=== PATIENT | male | born 1970 | race Caucasian/White ===

== ENCOUNTER 2019-04-14 16:24 | Outpatient (CLI) | payer BC ==
--- NOTE | 2019-04-14 16:35 | RAD ---
XR Shoulder Lt 3 View STANDARD History: Pain in left shoulder. Torn rotator cuff. Comparison: None Findings: No acute fracture or malalignment. Mild degenerative disease acromioclavicular joint. Ribs are intact. Impression: No acute osseous abnormality.
== END 2019-04-14 16:25 | disposition home or self-care (01) ==
LOC: BICRAD 16:24
PROVIDERS: ATTEND Family Medicine
DX: M25.512 Pain in left shoulder (principal)

== ENCOUNTER 2024-09-01 12:24 | Emergency (ER) | payer BC ==
[~2024-09-01 12:24] MED LIST: Iopamidol-370 76% 500 ML MDV (1 ML CHARGE) ONE
[2024-09-01 14:03] LABS: #Basophils Less than 0.03 10x3/uL (0.0-0.2); #Eosinophils Less than 0.03 10x3/uL (0.0-0.7); %Basophils 0.2 % (0.0-1.0); %Eosinophils 0.2 % (0.0-10.0); %Lymphocytes 11.7 % (21.0-51.0); %Monocytes 8.5 % (0.0-10.0); %Neutrophils 78.2 % (42.0-75.0); Hematocrit 20.5 % (42.0-52.0); Hemoglobin 5.5 g/dL (14.0-18.0); Mean Corpuscular HGB CONC 26.8 g/dL (32.0-36.0); Mean Corpuscular Hemoglobin 18.9 pg (27.0-31.0); Mean Corpuscular Volume 70.4 fL (78.0-98.0); Mean Platelet Volume 7.9 fL (7.4-10.4); Platelet Count 388 10x3/uL (130-400); RBC Distribution Width 29.5 % (11.5-14.5); Red Blood Cell (RBC) Count 2.91 mill/uL (4.70-6.10)
[2024-09-01 14:07] LABS: ALT (SGPT) 7 U/L (Less than 45); AST (SGOT) 14 U/L (11-34); Albumin 1.4 g/dL (3.1-4.5); Alkaline Phosphatase 191 U/L (40-110); Anion Gap 17 mmol/L (10-20); BUN (Urea Nitrogen) 19 mg/dL (8.4-25.7); Bilirubin, Total 0.4 mg/dL (0.3-1.2); Calc. Creatinine Clearance 0 mL/min (70-130); Calcium 8.3 mg/dL (7.8-10.44); Carbon Dioxide 19 mmol/L (22-29); Chloride 99 mmol/L (98-107); Estimated GFR 74; Globulin 4.4 g/dL (2.4-3.5); Glucose 65 mg/dL (70-105); Protein, Total 5.8 g/dL (6.0-8.3); Sodium 132 mmol/L (136-145)
[2024-09-01 14:13] LABS: Troponin I Less than 0.010 ng/mL (< 0.028)
[2024-09-01 14:30] LABS: Burr Cells SLIGHT = 2-5 cells HPF (0-1); Hypochromia SLIGHT = 6-15 cells HPF (0-5); Microcytosis MODERATE=15-30 cells HPF (0-5); Platelet Adequacy Comment Platelets Normal; Polychromasia MODERATE = 3-4 cells HPF (0-2); Schistocytes SLIGHT = 2-5 cells HPF (0-1); Spherocytes SLIGHT = 1-5 cells HPF (None Seen)
[2024-09-01] MEDS ORDERED: Potassium Chloride 20 MEQ TAB ONE (15:02)
[2024-09-01 15:18] LABS: INR-International Normal Ratio 1.4
[2024-09-01] MEDS ORDERED: Midodrine HCl 5 MG TAB PO SCH (16:45)
[2024-09-01 23:32] LABS: #Basophils Less than 0.03 10x3/uL (0.0-0.2); #Eosinophils Less than 0.03 10x3/uL (0.0-0.7); %Basophils 0.1 % (0.0-1.0); %Eosinophils 0.3 % (0.0-10.0); %Lymphocytes 12.4 % (21.0-51.0); %Monocytes 10.1 % (0.0-10.0); %Neutrophils 75.8 % (42.0-75.0); Hematocrit 33.7 % (42.0-52.0); Hemoglobin 10.1 g/dL (14.0-18.0); Mean Corpuscular Hemoglobin 22.4 pg (27.0-31.0); Mean Corpuscular Volume 74.9 fL (78.0-98.0); Mean Platelet Volume 7.8 fL (7.4-10.4); Platelet Count 412 10x3/uL (130-400); RBC Distribution Width 26.5 % (11.5-14.5)
== END 2024-09-02 00:36 | disposition short-term general hospital (02) ==
LOC: ERS 12:24
DX: I82.220 Acute embolism and thrombosis of inferior vena cava (principal); E87.6 Hypokalemia; D64.9 Anemia, unspecified; R53.1 Weakness; I25.10 Atherosclerotic heart disease of native coronary artery without angina pectoris; I25.2 Old myocardial infarction; I50.9 Heart failure, unspecified; Z87.891 Personal history of nicotine dependence
CPT/HCPCS: 36415; 36430; 74177; 80053; 84484; 85025; 85610; 86850; 86900; 86901; 87428; 93005; 99285; P9016; Q9967

== ENCOUNTER 2024-09-08 23:56 | Inpatient (IN) | payer BC ==
[2024-09-09 04:18] LABS: Hematocrit 28.1 % (42.0-52.0); Hemoglobin 8.6 g/dL (14.0-18.0); Mean Corpuscular HGB CONC 30.6 g/dL (32.0-36.0); Mean Corpuscular Hemoglobin 23.1 pg (27.0-31.0); Mean Corpuscular Volume 75.3 fL (78.0-98.0); Mean Platelet Volume 8.1 fL (7.4-10.4); Platelet Count 287 10x3/uL (130-400); RBC Distribution Width 27.9 % (11.5-14.5); Red Blood Cell (RBC) Count 3.73 mill/uL (4.70-6.10)
[2024-09-09 04:29] LABS: Troponin I Less than 0.010 ng/mL (< 0.028)
[2024-09-09 04:31] LABS: ALT (SGPT) Less than 7 U/L (Less than 45); AST (SGOT) 15 U/L (11-34); Alkaline Phosphatase 183 U/L (40-110); Anion Gap 14 mmol/L (10-20); BUN (Urea Nitrogen) 9 mg/dL (8.4-25.7); Bilirubin, Total 0.3 mg/dL (0.3-1.2); Calc. Creatinine Clearance 0 mL/min (70-130); Calcium 4.9 mg/dL (7.8-10.44); Carbon Dioxide 14 mmol/L (22-29); Chloride 108 mmol/L (98-107); Estimated GFR 101; Globulin 2.8 g/dL (2.4-3.5); Glucose 78 mg/dL (70-105); Potassium 3.9 mmol/L (3.5-5.1); Protein, Total 3.8 g/dL (6.0-8.3); Sodium 132 mmol/L (136-145)
[2024-09-09 04:42] LABS: Anisocytosis SLIGHT = 6-15 cells HPF (0-5); Band 2 % (5-11); Elliptocytes SLIGHT = 2-5 cells HPF (0-1); Eosinophils 1 % (0-10); Hypochromia SLIGHT = 6-15 cells HPF (0-5); Lymphocytes 8 % (21-51); Microcytosis SLIGHT = 6-15 cells HPF (0-5); Monocytes 2 % (0-10); Neutrophil 86 % (42-75); Platelet Adequacy Comment Platelets Normal; Poikilocytosis SLIGHT = 6-15 cells HPF (0-5); Polychromasia SLIGHT = 2-3 cells HPF (0-2); Target Cells SLIGHT = 2-5 cells HPF (0-1)
[2024-09-09] MEDS ORDERED: CALCIUM GLUC 1 GM/NS 50 ML IV Bag ONE ×4 (05:44→09:59)
[2024-09-09 07:05] LABS: Lactic Acid 1.65 mmol/L (0.50-2.20)
[2024-09-09] MEDS ORDERED: Acetaminophen 325 MG TAB PO PRN (07:15)
[2024-09-09] MEDS ORDERED: Ondansetron ODT 4 MG TAB SL PRN (07:15)
[2024-09-09] MEDS ORDERED: Ondansetron PF 4 MG/2 ML Vial IVP PRN (07:15)
[2024-09-09] MEDS: Midodrine HCl 5 MG TAB PO SCH ×3 (08:48→14:22)
[2024-09-09] MEDS: CALCIUM GLUC 1 GM/NS 50 ML 1 GM in Premix 1 BAG IVPB SCH (09:05)
[2024-09-09] MEDS ORDERED: Dextrose 5% in Water 1,000 ML IV PRN (09:41)
[2024-09-09] MEDS ORDERED: Glucagon 1 MG/ML KIT IM PRN (09:41)
[2024-09-09] MEDS ORDERED: Magnevist 469MG/ML 20 ML VIAL ONE (10:27)
[2024-09-09] MEDS ORDERED: levETIRAcetam 500 MG TAB ONE (10:54)
[2024-09-09] MEDS: levETIRAcetam 500 MG TAB PO SCH ×2 (11:00→22:58)
[2024-09-09] MEDS ORDERED: Dextrose 10% in Water 250 ML ONE ×2 (11:36→15:57)
[2024-09-09] MEDS ORDERED: diphenhydrAMINE 50 MG/ML VIAL ONE (14:10)
[2024-09-09] MEDS: diphenhydrAMINE 50 MG/ML VIAL IVP SCH (14:15)
[2024-09-09] MEDS ORDERED: Enoxaparin 40 MG (0.4 mL) SYRINGE ONE (16:23)
[2024-09-09] MEDS: Dextrose 5 % And 0.9 % NaCl 1,000 ML IV SCH (16:33)
[2024-09-09 16:41] VITALS: BMI 19.9
[2024-09-09] MEDS: Enoxaparin 40 MG (0.4 mL) SYRINGE SC SCH (16:44)
[2024-09-09 16:51] LABS: Calcium 6.1 mg/dL (7.8-10.44)
[2024-09-09] MEDS: Enoxaparin 60 MG (0.6 mL) SYRINGE SC SCH (17:00)
[2024-09-09] MEDS ORDERED: Enoxaparin 60 MG (0.6 mL) SYRINGE ONE (17:52)
[2024-09-09] MEDS: Atorvastatin Calcium 40 MG TAB PO SCH (22:58)
[2024-09-09] MEDS: Mirtazapine 15 MG TAB PO SCH (22:58)
[2024-09-10] MEDS: diphenhydrAMINE 25 MG CAP PO SCH (01:47)
[2024-09-10] MEDS: Enoxaparin 60 MG (0.6 mL) SYRINGE SC SCH ×2 (04:43→15:05)
[2024-09-10 05:04] LABS: #Basophils Less than 0.03 10x3/uL (0.0-0.2); %Basophils 0.1 % (0.0-1.0); %Eosinophils 0.5 % (0.0-10.0); %Lymphocytes 13.8 % (21.0-51.0); %Monocytes 7.8 % (0.0-10.0); %Neutrophils 75.7 % (42.0-75.0); Mean Corpuscular HGB CONC 30.8 g/dL (32.0-36.0); Mean Corpuscular Volume 74.7 fL (78.0-98.0); Mean Platelet Volume 8.2 fL (7.4-10.4); Platelet Count 315 10x3/uL (130-400); RBC Distribution Width 28.4 % (11.5-14.5); Red Blood Cell (RBC) Count 3.48 mill/uL (4.70-6.10)
[2024-09-10 05:16] LABS: Phosphorus 2.4 mg/dL (2.5-4.5)
[2024-09-10 05:18] LABS: Anion Gap 12 mmol/L (10-20); BUN (Urea Nitrogen) 9 mg/dL (8.4-25.7); Calc. Creatinine Clearance 81 mL/min (70-130); Calcium 5.8 mg/dL (7.8-10.44); Carbon Dioxide 14 mmol/L (22-29); Chloride 110 mmol/L (98-107); Estimated GFR 104; Glucose 57 mg/dL (70-105); Magnesium 1.3 mg/dL (1.6-2.6); Potassium 3.7 mmol/L (3.5-5.1); Sodium 132 mmol/L (136-145)
[2024-09-10] MEDS: Dextrose 50% Abboject 50 ML SYRINGE SLOW IVP PRN (06:07)
[2024-09-10] MEDS ORDERED: Electrolyte Replacement Protocol 1 EACH FS SCH (07:45)
[2024-09-10] MEDS ORDERED: Electrolyte Replacement Protocol FS PRN (07:45)
[2024-09-10] MEDS ORDERED: Magnesium Sulfate 4 GM in Sodium Chloride 0.9% 250 ML 250 ML IVPB SCH (07:45)
[2024-09-10 09:48] VITALS: BMI 19.9
[2024-09-10] MEDS: Pantoprazole 40 MG DR.TAB PO SCH (10:10)
[2024-09-10] MEDS: PHOS-NAK 1 PKT PACK PO SCH (10:10)
[2024-09-10] MEDS: Aspirin 81 mg Enteric Coated Tablet PO SCH (10:15)
[2024-09-10] MEDS: diphenhydrAMINE 25 MG CAP PO PRN (11:36)
[2024-09-10] MEDS: Magnesium Sulfate In Water 4 GM in Premix 1 BAG IVPB SCH (11:42)
[2024-09-10] MEDS: Calcium Gluc 4.6 MEQ/10 ML (100 MG/ML) SLOW IVP SCH (11:49)
[2024-09-10] MEDS ORDERED: CEFAZOLIN 2 GM in Sodium Chloride 0.9% 100 ML IVPB SCH (15:30)
[2024-09-10] MEDS: Sodium Bicarbonate Tab 325 MG TAB PO SCH (20:40)
[2024-09-11] MEDS ORDERED: Lidocaine 2% PF 5 ML VIAL ONE (06:56)
[2024-09-11] MEDS ORDERED: EPINEPHrine 1 MG/ML VIAL ONE (06:56)
[2024-09-11] MEDS ORDERED: Bupivacaine PF 0.5% 30 ML VIAL ONE (06:56)
[2024-09-11] MEDS ORDERED: CEFAZOLIN 2 GM VIAL ONE (07:24)
[2024-09-11] MEDS ORDERED: Midazolam HCl 2 mg/2 ml Vial ONE (07:39)
[2024-09-11] MEDS ORDERED: fentaNYL 50 mcg/mL 1 mL Vial ONE (07:48)
[2024-09-11] MEDS: Acetaminophen 500 MG TAB PO SCH ×2 (09:31→14:30)
[2024-09-11] MEDS: traMADol HCl 50 MG TAB PO SCH (09:32)
[2024-09-11] MEDS ORDERED: traMADol HCl 50 MG TAB PO PRN (13:00)
[2024-09-12 00:24] LABS: #Basophils Less than 0.03 10x3/uL (0.0-0.2); %Basophils 0.2 % (0.0-1.0); %Eosinophils 0.6 % (0.0-10.0); %Lymphocytes 18.6 % (21.0-51.0); %Monocytes 6.2 % (0.0-10.0); %Neutrophils 73.2 % (42.0-75.0); Hematocrit 28.2 % (42.0-52.0); Hemoglobin 8.3 g/dL (14.0-18.0); Mean Corpuscular HGB CONC 29.4 g/dL (32.0-36.0); Mean Corpuscular Hemoglobin 22.4 pg (27.0-31.0); Mean Platelet Volume 8.2 fL (7.4-10.4); Platelet Count 247 10x3/uL (130-400); RBC Distribution Width 29.5 % (11.5-14.5); Red Blood Cell (RBC) Count 3.71 mill/uL (4.70-6.10)
[2024-09-12 00:45] LABS: Anisocytosis MODERATE=16-30 cells HPF (0-5); Hypochromia SLIGHT = 6-15 cells HPF (0-5); Microcytosis SLIGHT = 6-15 cells HPF (0-5); Platelet Adequacy Comment Platelets Normal; Polychromasia SLIGHT = 2-3 cells HPF (0-2); Tear Drops SLIGHT = 2-5 cells HPF (0-1)
[2024-09-12 01:00] LABS: Anion Gap 15 mmol/L (10-20); BUN (Urea Nitrogen) 9 mg/dL (8.4-25.7); Calc. Creatinine Clearance 76 mL/min (70-130); Calcium 5.8 mg/dL (7.8-10.44); Carbon Dioxide 13 mmol/L (22-29); Chloride 114 mmol/L (98-107); Estimated GFR 101; Glucose 73 mg/dL (70-105); Phosphorus 3.2 mg/dL (2.5-4.5); Sodium 138 mmol/L (136-145)
[2024-09-12 03:55] LABS: #Basophils Less than 0.03 10x3/uL (0.0-0.2); #Eosinophils Less than 0.03 10x3/uL (0.0-0.7); %Basophils 0.1 % (0.0-1.0); %Eosinophils 0.3 % (0.0-10.0); %Lymphocytes 11.3 % (21.0-51.0); %Monocytes 5.6 % (0.0-10.0); %Neutrophils 81.7 % (42.0-75.0); Hemoglobin 8.3 g/dL (14.0-18.0); Mean Corpuscular HGB CONC 28.6 g/dL (32.0-36.0); Mean Corpuscular Hemoglobin 22.1 pg (27.0-31.0); Mean Corpuscular Volume 77.3 fL (78.0-98.0); Mean Platelet Volume 7.9 fL (7.4-10.4); Platelet Count 202 10x3/uL (130-400); RBC Distribution Width 29.7 % (11.5-14.5); Red Blood Cell (RBC) Count 3.75 mill/uL (4.70-6.10)
[2024-09-12 04:37] LABS: Anion Gap 14 mmol/L (10-20); BUN (Urea Nitrogen) 9 mg/dL (8.4-25.7); Calc. Creatinine Clearance 81 mL/min (70-130); Calcium 5.7 mg/dL (7.8-10.44); Carbon Dioxide 13 mmol/L (22-29); Chloride 114 mmol/L (98-107); Estimated GFR 103; Glucose 79 mg/dL (70-105); Magnesium 1.9 mg/dL (1.6-2.6); Potassium 3.8 mmol/L (3.5-5.1); Sodium 137 mmol/L (136-145)
[2024-09-12 04:58] LABS: Anisocytosis SLIGHT = 6-15 cells HPF (0-5); Burr Cells MODERATE= 6-15 cells HPF (0-1); Hypochromia SLIGHT = 6-15 cells HPF (0-5); Microcytosis SLIGHT = 6-15 cells HPF (0-5); Platelet Adequacy Comment Platelets Normal; Poikilocytosis MODERATE=16-30 cells HPF (0-5); Polychromasia SLIGHT = 2-3 cells HPF (0-2)
[2024-09-12] MEDS: Sodium Bicarbonate Tab 325 MG TAB PO SCH (10:46)
[2024-09-12] MEDS: Calcium Gluc 4.6 MEQ/10 ML (100 MG/ML) SLOW IVP SCH (10:53)
[2024-09-12] MEDS: Potassium Chloride 20 MEQ in Lactated Ringer's 1,000 ML IV SCH (10:53)
[2024-09-12] MEDS: Metoclopramide HCl 10 MG (2 mL) VIAL IVP SCH (12:03)
[2024-09-12] MEDS ORDERED: D5 0.9% NS w/ 20 mEq KCl 1,000 ML IV SCH (13:00)
[2024-09-12] MEDS: FLU (Fluarix Triv) TS24-25(6MOS UP)/PF 45 MCG/0.5 ML Syringe IM ONE (14:01)
[2024-09-12] MEDS: Sodium Bicarbonate 75 MEQ in Dextrose 5% in Water 1,000 ML IV SCH (16:38)
[2024-09-12] MEDS: Magnesium 2 GM/50 ML(in water) 2 GM in Premix 1 BAG IVPB SCH (16:38)
[2024-09-12] MEDS: Ondansetron PF 4 MG/2 ML Vial IVP PRN (21:32)
[2024-09-12] MEDS: Lorazepam 1 MG TAB PO PRN (21:34)
[2024-09-13 04:52] LABS: #Basophils Less than 0.03 10x3/uL (0.0-0.2); #Eosinophils Less than 0.03 10x3/uL (0.0-0.7); %Lymphocytes 7.7 % (21.0-51.0); %Monocytes 4.2 % (0.0-10.0); %Neutrophils 86.5 % (42.0-75.0); Hematocrit 25.1 % (42.0-52.0); Hemoglobin 7.5 g/dL (14.0-18.0); Mean Corpuscular HGB CONC 29.9 g/dL (32.0-36.0); Mean Corpuscular Hemoglobin 22.3 pg (27.0-31.0); Mean Corpuscular Volume 74.5 fL (78.0-98.0); Mean Platelet Volume 8.2 fL (7.4-10.4); Platelet Count 197 10x3/uL (130-400); RBC Distribution Width 30.2 % (11.5-14.5); Red Blood Cell (RBC) Count 3.37 mill/uL (4.70-6.10)
[2024-09-13 05:00] LABS: Anion Gap 15 mmol/L (10-20); BUN (Urea Nitrogen) 11 mg/dL (8.4-25.7); Calc. Creatinine Clearance 67 mL/min (70-130); Calcium 5.4 mg/dL (7.8-10.44); Carbon Dioxide 15 mmol/L (22-29); Chloride 107 mmol/L (98-107); Estimated GFR 88; Glucose 70 mg/dL (70-105); Potassium 4.4 mmol/L (3.5-5.1); Sodium 133 mmol/L (136-145)
[2024-09-13] MEDS: Albumin 25% 25 GM (100 mL) BOT IVPB SCH ×2 (12:36)
[2024-09-13] MEDS: Cefepime 1 GM in Sodium Chloride 0.9% 100 ML IVPB SCH (12:36)
[2024-09-13] MEDS: NOREPINEPHRINE 8 MG/250 ML-D5W 250 ML IVPB SCH (13:01)
[2024-09-13] MEDS: Dexmedetomidine In 0.9 % NaCl 100 ML IVPB SCH (14:39)
[2024-09-13] MEDS: Furosemide 40 MG (4 mL) VIAL SLOW IVP SCH (14:39)
[2024-09-13 15:02] LABS: #Basophils Less than 0.03 10x3/uL (0.0-0.2); #Eosinophils Less than 0.03 10x3/uL (0.0-0.7); %Basophils 0.1 % (0.0-1.0); %Lymphocytes 7.9 % (21.0-51.0); %Monocytes 2.2 % (0.0-10.0); %Neutrophils 88.6 % (42.0-75.0); Hematocrit 26.1 % (42.0-52.0); Hemoglobin 7.6 g/dL (14.0-18.0); Mean Corpuscular HGB CONC 29.1 g/dL (32.0-36.0); Mean Corpuscular Volume 75.7 fL (78.0-98.0); Mean Platelet Volume 8.7 fL (7.4-10.4); Platelet Count 263 10x3/uL (130-400); RBC Distribution Width 30.5 % (11.5-14.5); Red Blood Cell (RBC) Count 3.45 mill/uL (4.70-6.10)
[2024-09-13 15:20] LABS: Burr Cells MODERATE= 6-15 cells HPF (0-1); Hypochromia SLIGHT = 6-15 cells HPF (0-5); Platelet Adequacy Comment Platelets Normal; Poikilocytosis MODERATE=16-30 cells HPF (0-5); Polychromasia MODERATE = 3-4 cells HPF (0-2)
[2024-09-13 15:26] LABS: ALT (SGPT) Less than 7 U/L (Less than 45); AST (SGOT) 30 U/L (11-34); Albumin 1.8 g/dL (3.1-4.5); Alkaline Phosphatase 439 U/L (40-110); Anion Gap 20 mmol/L (10-20); BUN (Urea Nitrogen) 11 mg/dL (8.4-25.7); Bilirubin, Total 0.7 mg/dL (0.3-1.2); Calc. Creatinine Clearance 64 mL/min (70-130); Calcium 5.6 mg/dL (7.8-10.44); Carbon Dioxide 11 mmol/L (22-29); Chloride 106 mmol/L (98-107); Estimated GFR 83; Glucose 86 mg/dL (70-105); Phosphorus 4.6 mg/dL (2.5-4.5); Potassium 4.3 mmol/L (3.5-5.1); Protein, Total 4.8 g/dL (6.0-8.3); Sodium 133 mmol/L (136-145)
[2024-09-13] MEDS: CALCIUM GLUC 1 GM/NS 50 ML 1 GM in Premix 1 BAG IVPB SCH (16:25)
[2024-09-13] MEDS: Furosemide 100 MG (10 mL) VIAL SLOW IVP SCH (16:31)
[2024-09-13] MEDS: EPINEPHrine 1 MG/10 ML Abboject SYRINGE ONE (20:35)
[2024-09-13] MEDS: Etomidate 40 MG (20 mL) VIAL IVP SCH (20:40)
[2024-09-13] MEDS: Rocuronium Bromide 10 MG/ML (10ML VIAL) IVP SCH (20:40)
[2024-09-13] MEDS ORDERED: Lorazepam 2 MG/ML VIAL SLOW IVP PRN (21:00)
[2024-09-13] MEDS ORDERED: Fentanyl BOLUS 250 ML IVPB PRN (21:00)
[2024-09-13] MEDS: Vancomycin 1.5 GRAM/300 ML BAG 1.5 GM in Premix 1 BAG IVPB SCH (21:00)
[2024-09-13] MEDS ORDERED: Vasopressin In 0.9 % NaCl 40 UNIT in Premix 1 BAG IV SCH (21:00)
[2024-09-13] MEDS ORDERED: Vasopressin 20 UNITS in Sodium Chloride 0.9% 50 ML IV SCH (21:00)
[2024-09-13] MEDS ORDERED: Propofol BOLUS 1,000 MG/100 ML VIAL IV PRN (21:00)
[2024-09-13] MEDS ORDERED: Morphine 2 MG/ML VIAL SLOW IVP PRN (21:00)
[2024-09-13] MEDS ORDERED: DISCONTINUE PREVIOUS NARCOTIC PAIN MEDICATIONS AND BENZODIAZEPINES FS SCH (21:00)
[2024-09-13] MEDS ORDERED: Propofol 1,000 MG/100 ML VIAL IV PRN (21:00)
[2024-09-13 22:26] LABS: Calcium, Ionized (arterial) 0.82 mmol/L (1.12-1.30); Carboxyhemoglobin (COHb) 0.7 gm% (0.0-3.0); Hematocrit-ABG 23 % (42.0-52.0); Hemoglobin (Hb) 7.8 g/dL (14.0-18.0); O2 Tension (PaO2), arterial 80.8 mmHg (80.0-100.0); Potassium - ABG Lab 3.83 mmol/L (3.70-5.30); pH, Arterial 7.286 (7.35-7.45)
[2024-09-13 22:27] LABS: Actual Bicarbonate (HCO3a) 13.5 mEq/L (22-28); Puncture Site Arterial Line
[2024-09-13] MEDS: Cefepime 2 GM in Sodium Chloride 0.9% 100 ML IVPB SCH (22:41)
[2024-09-13] MEDS: Ventilator Sedation Protocol 1 EACH FS ONE (22:43)
[2024-09-13] MEDS: Sodium Bicarb 50 MEQ/50 ML Abboject 8.4% SYRINGE IVP SCH (22:45)
[2024-09-13] MEDS: Sodium Bicarb 50 MEQ/50 ML Abboject 8.4% SYRINGE ONE (23:23)
[2024-09-14 04:10] LABS: #Basophils Less than 0.03 10x3/uL (0.0-0.2); #Eosinophils Less than 0.03 10x3/uL (0.0-0.7); %Monocytes 1.8 % (0.0-10.0); %Neutrophils 86.5 % (42.0-75.0); Hematocrit 24.1 % (42.0-52.0); Hemoglobin 7.1 g/dL (14.0-18.0); Mean Corpuscular HGB CONC 29.5 g/dL (32.0-36.0); Mean Corpuscular Hemoglobin 21.8 pg (27.0-31.0); Mean Corpuscular Volume 73.9 fL (78.0-98.0); Mean Platelet Volume 8.2 fL (7.4-10.4); Platelet Count 181 10x3/uL (130-400); RBC Distribution Width 30.2 % (11.5-14.5); Red Blood Cell (RBC) Count 3.26 mill/uL (4.70-6.10)
[2024-09-14 04:34] LABS: Phosphorus 5.2 mg/dL (2.5-4.5); Vancomycin, Random Less than 1.4 ug/mL (See Comment)
[2024-09-14 04:42] LABS: Anisocytosis MODERATE=16-30 cells HPF (0-5); Burr Cells MODERATE= 6-15 cells HPF (0-1); Hypochromia SLIGHT = 6-15 cells HPF (0-5); Microcytosis SLIGHT = 6-15 cells HPF (0-5); Platelet Adequacy Comment Platelets Normal; Poikilocytosis MODERATE=16-30 cells HPF (0-5); Polychromasia MODERATE = 3-4 cells HPF (0-2)
[2024-09-14 04:58] LABS: ALT (SGPT) Less than 7 U/L (Less than 45); AST (SGOT) 57 U/L (11-34); Albumin 1.9 g/dL (3.1-4.5); Alkaline Phosphatase 728 U/L (40-110); Anion Gap 19 mmol/L (10-20); BUN (Urea Nitrogen) 12 mg/dL (8.4-25.7); Bilirubin, Total 1.4 mg/dL (0.3-1.2); Calc. Creatinine Clearance 60 mL/min (70-130); Calcium 5.5 mg/dL (7.8-10.44); Carbon Dioxide 15 mmol/L (22-29); Chloride 106 mmol/L (98-107); Estimated GFR 76; Globulin 2.4 g/dL (2.4-3.5); Glucose 61 mg/dL (70-105); Lactic Acid 4.38 mmol/L (0.50-2.20); Magnesium 1.7 mg/dL (1.6-2.6); Potassium 3.6 mmol/L (3.5-5.1); Protein, Total 4.3 g/dL (6.0-8.3); Sodium 136 mmol/L (136-145)
[2024-09-14 07:40] VITALS: BP 118/65
[2024-09-14] MEDS: Magnesium 2 GM/50 ML(in water) 2 GM in Premix 1 BAG IVPB SCH (08:10)
[2024-09-14] MEDS ORDERED: Vancomycin HCl 750 MG in Sodium Chloride 0.9% 250 ML 250 ML IVPB SCH (09:00)
[2024-09-14 10:22] LABS: Vancomycin, Random Less than 1.4 ug/mL (See Comment)
[2024-09-14] MEDS: Vancomycin 1 GM in Premix 1 BAG IVPB SCH (11:06)
[2024-09-14] MEDS ORDERED: diphenhydrAMINE 25 MG CAP PER TUBE PRN (11:41)
[2024-09-14] MEDS: Pantoprazole 40 MG VIAL IVP SCH (12:28)
[2024-09-14] MEDS ORDERED: Vancomycin HCl 500 MG in Sodium Chloride 0.9% 100 ML IVPB SCH (12:30)
[2024-09-14] MEDS: Fentanyl CADD 100 ML IV SCH (12:58)
[2024-09-14] MEDS ORDERED: Acetaminophen 500 MG TAB PER TUBE SCH (13:00)
[2024-09-14] MEDS: levETIRAcetam 500 MG (5 mL) VIAL SLOW IVP SCH (13:02)
[2024-09-14 13:23] VITALS: TEMP 97.7
[2024-09-14] MEDS: Glycopyrrolate 0.4 MG/ 2 ML VIAL SLOW IVP PRN (13:41)
[2024-09-14] MEDS: Lorazepam 2 MG/ML VIAL SLOW IVP PRN (13:41)
[2024-09-14] MEDS: Morphine 4 MG/ML VIAL SLOW IVP PRN (13:41)
[2024-09-14] MEDS ORDERED: Albumin 25% 25 GM (100 mL) BOT IVPB SCH (18:00)
[2024-09-14] MEDS ORDERED: Mirtazapine 15 MG TAB PER TUBE SCH (21:00)
[2024-09-14] MEDS ORDERED: Sodium Bicarbonate Tab 325 MG TAB PER TUBE SCH (21:00)
[2024-09-14] MEDS ORDERED: Atorvastatin Calcium 40 MG TAB PER TUBE SCH (21:00)
[2024-09-14] MEDS ORDERED: levETIRAcetam 500 MG (5 mL) VIAL SLOW IVP SCH (21:00)
[2024-09-15] MEDS ORDERED: Aspirin Chewable 81 MG TAB PER TUBE SCH (09:00)
== END 2024-09-14 14:05 | disposition expired | DRG 314 ==
LOC: ERS 23:56 → ERHOLD 09-09 06:54 → PCU 09-09 20:42 → IMCU/EMU 09-12 13:51 → CCU 09-13 12:46
PROVIDERS: ADMIT Student in an Organized Health Care Education/Training Program; ATTEND Family Medicine
DX: I95.9 Hypotension, unspecified (principal); E43 Unspecified severe protein-calorie malnutrition; J18.9 Pneumonia, unspecified organism; J96.01 Acute respiratory failure with hypoxia; C64.9 Malignant neoplasm of unspecified kidney, except renal pelvis; E87.1 Hypo-osmolality and hyponatremia; E87.20 Acidosis, unspecified; E83.51 Hypocalcemia; I25.10 Atherosclerotic heart disease of native coronary artery without angina pectoris; I25.2 Old myocardial infarction; I50.9 Heart failure, unspecified; Z98.890 Other specified postprocedural states; Z95.1 Presence of aortocoronary bypass graft; Z87.891 Personal history of nicotine dependence; D50.9 Iron deficiency anemia, unspecified; E83.42 Hypomagnesemia; E87.6 Hypokalemia; Z66 Do not resuscitate
CPT/HCPCS: 36415; 36416; 70450; 70553; 71045; 76376; 80048; 80053; 80202; 82533; 82805; 83605; 83735; 83880; 84100; 84484; 85025; 87081; 93005; 94002; 94003; 94660; 95813; 96365; 97139; C1788; J0171; J0612; J0613; J0665; J0692; J1200; J1642; J1650; J1940; J1953; J2060; J2250; J2270; J2405; J2470; J2765; J3010; J3370; J3475; J3480; J7042; J7070; J7120; J7999; P9047